=== PATIENT | male | born 1965 | race African-American/Black ===

== ENCOUNTER 2019-11-09 22:53 | Inpatient (IN) | payer MEDICAID, OTHER ==
[~2019-11-09] VITALS: Ht 177.8 cm; Wt 121.6 kg
[2019-11-09] MEDS ORDERED: ASPIRIN 81MG TABLET PO ONE (23:30)
[2019-11-09] MEDS ORDERED: NITROGLYCERIN 0.4MG TABLET SL SL PRN (23:30)
[2019-11-09 23:55] LABS: BASOPHILS % 0.4 % (0.0-2.0); EOSINOPHILS % 3.9 % (0.0-5.0); HEMATOCRIT. 40.3 % (42.0-52.0); HEMOGLOBIN. 12.7 g/dL (14.0-18.0); LYMPHOCYTES % 19.2 % (20.0-50.0); MEAN CORPUSCULAR HEMOGLOBIN 19.4 pg (28.0-32.0); MEAN CORPUSCULAR VOLUME 61.4 fL (80.0-94.0); MEAN PLATELET VOLUME 8.6 fl (7.4-10.4); MONOCYTES % 11.6 % (2.0-8.0); NEUTROPHILS % 64.9 % (40.0-76.0); PLATELET 151 x1000/uL (130-400); RED BLOOD CELL COUNT 6.56 mill/uL (4.7-6.1); RED CELL DISTRIBUTION WIDTH 18.1 % (11.6-14.6)
[2019-11-10] VITALS (8 sets, daily range): BP systolic 105–155; BP diastolic 61–92
[2019-11-10 00:06] LABS: CHLORIDE 103 mEq/L (98-107)
[2019-11-10 00:47] LABS: PLATELET ESTIMATE NORMAL
[2019-11-10 02:07] LABS: CLARITY URINE CLEAR (CLEAR); COLOR URINE YELLOW (YELLOW); KETONES URINE NEGATIVE (NEGATIVE); LEUKOCYTE ESTERASE URINE NEGATIVE (NEGATIVE); NITRITE URINE NEGATIVE (NEGATIVE); OCCULT BLOOD URINE NEGATIVE (NEGATIVE); PROTEIN URINE NEGATIVE (NEGATIVE); SPECIFIC GRAVITY URINE 1.021 (1.005-1.030); UROBILINOGEN URINE 0.2 E.U./dL (0.2-1.0)
[2019-11-10] MEDS ORDERED: METO-539 PO (04:56)
[2019-11-10] MEDS ORDERED: ACETAMINOPHEN 325MG TABLET PO PRN (05:15)
[2019-11-10] MEDS ORDERED: CLONIDINE 0.1MG TABLET PO PRN (05:15)
[2019-11-10] MEDS ORDERED: HYDROCODONE/ACETAMINOPHEN 5/325MG TABLET PO PRN (05:15)
[2019-11-10 08:55] LABS: BASOPHILS % 0.5 % (0.0-2.0); EOSINOPHILS % 4.5 % (0.0-5.0); HEMATOCRIT. 40.5 % (42.0-52.0); HEMOGLOBIN. 12.6 g/dL (14.0-18.0); LYMPHOCYTES % 21.9 % (20.0-50.0); MEAN CORPUSCULAR HEMOGLOBIN 19.2 pg (28.0-32.0); MEAN CORPUSCULAR VOLUME 61.7 fL (80.0-94.0); MEAN PLATELET VOLUME 8.7 fl (7.4-10.4); MONOCYTES % 12.2 % (2.0-8.0); NEUTROPHILS % 60.9 % (40.0-76.0); PLATELET 141 x1000/uL (130-400); RED BLOOD CELL COUNT 6.56 mill/uL (4.7-6.1); RED CELL DISTRIBUTION WIDTH 17.8 % (11.6-14.6)
[2019-11-10 09:02] LABS: CHLORIDE 103 mEq/L (98-107)
[2019-11-10 09:12] LABS: PHOSPHORUS 4.4 mg/dL (2.5-4.9)
[2019-11-10 09:13] LABS: LDL CHOLESTEROL 196 mg/dL (5-100)
[2019-11-10 09:14] LABS: HDL CHOLESTEROL 47 mg/dL (40-59)
[2019-11-10] MEDS: ENOXAPARIN 30MG/0.3ML SYR SUBCUT SCH ×2 (10:57→21:56)
[2019-11-10] MEDS: ASPIRIN 81MG TABLET PO SCH (10:57)
[2019-11-10 13:23] LABS: HEPATITIS B SURFACE ANTIGEN NEGATIVE
[2019-11-10 13:52] LABS: HEPATITIS A AB IGM NEGATIVE (NEGATIVE)
[2019-11-10] MEDS ORDERED: ONDANSETRON HCL 4MG/2ML INJ IV PRN (15:45)
[2019-11-10] MEDS ORDERED: IPRATROPIUM/ALBUTEROL 0.5-3(2.5)MG/3ML NEB HHN PRN (15:45)
[2019-11-10] MEDS: FUROSEMIDE 40MG/4ML VIAL IVP SCH (16:10)
[2019-11-11] VITALS (8 sets, daily range): BP systolic 112–146; BP diastolic 60–87
[2019-11-11 02:07] LABS: *AMPHETAMINES SCREEN URINE NEGATIVE (NEGATIVE); *BARBITURATES SCREEN URINE NEGATIVE (NEGATIVE); *BENZODIAZEPINES SCREEN URINE NEGATIVE (NEGATIVE); *COCAINE SCREEN URINE NEGATIVE (NEGATIVE); METHADONE URINE SCREEN NEGATIVE (NEGATIVE); OPIATES URINE SCREEN NEGATIVE (NEGATIVE)
[2019-11-11 02:08] LABS: CANNABINOID URINE SCREEN NEGATIVE (NEGATIVE); PHENCYCLIDINE URINE SCREEN NEGATIVE (NEGATIVE)
[2019-11-11 07:14] LABS: BASOPHILS % 0.4 % (0.0-2.0); EOSINOPHILS % 3.9 % (0.0-5.0); HEMATOCRIT. 41.6 % (42.0-52.0); HEMOGLOBIN. 12.9 g/dL (14.0-18.0); LYMPHOCYTES % 19.9 % (20.0-50.0); MEAN CORPUSCULAR HEMOGLOBIN 19.2 pg (28.0-32.0); MEAN CORPUSCULAR VOLUME 62.1 fL (80.0-94.0); MONOCYTES % 12.9 % (2.0-8.0); NEUTROPHILS % 62.9 % (40.0-76.0); PLATELET 159 x1000/uL (130-400); RED BLOOD CELL COUNT 6.69 mill/uL (4.7-6.1); RED CELL DISTRIBUTION WIDTH 18.1 % (11.6-14.6)
[2019-11-11 07:23] LABS: CHLORIDE 99 mEq/L (98-107)
[2019-11-11] MEDS: ENOXAPARIN 30MG/0.3ML SYR SUBCUT SCH ×2 (08:31→20:42)
[2019-11-11] MEDS: ASPIRIN 81MG TABLET PO SCH (08:32)
[2019-11-11] MEDS: FUROSEMIDE 40MG/4ML VIAL IVP SCH (08:32)
[2019-11-11] MEDS ORDERED: REGADENOSON 0.4 MG/5 ML IV ONE ×2 (09:15→14:07)
[2019-11-11] MEDS ORDERED: FUROSEMIDE 40MG/4ML VIAL IVP NR (18:00)
[2019-11-11] MEDS ORDERED: LOSARTAN POTASSIUM 50 MG TABLET PO SCH (18:00)
[2019-11-11] MEDS ORDERED: CARVEDILOL 12.5MG TABLET PO SCH (21:00)
[2019-11-17] MEDS ORDERED: COR3 PO (12:48)
[2019-11-17] MEDS ORDERED: LIP40 PO (12:48)
[2019-11-17] MEDS ORDERED: LISI2.5T47 PO (12:48)
[2019-11-17] MEDS ORDERED: ASPI-1158 PO (12:48)
== END 2019-11-12 00:20 | DRG 203 ==
LOC: ER 22:53 → 8WST 11-10 01:37 → EDBEDREQ 11-10 01:47 → EDBEDREQTM 11-10 01:47 → EDBEDREQDT 11-10 01:47 → ENRESERV 11-10 02:29
PROVIDERS: ADMIT Internal Medicine; ATTEND Internal Medicine
DX: M94.0 Chondrocostal junction syndrome [Tietze] (principal); I50.23 Acute on chronic systolic (congestive) heart failure; I20.0 Unstable angina; D64.9 Anemia, unspecified; E44.1 Mild protein-calorie malnutrition; E66.01 Morbid (severe) obesity due to excess calories; E78.5 Hyperlipidemia, unspecified; I11.0 Hypertensive heart disease with heart failure; J44.9 Chronic obstructive pulmonary disease, unspecified; R74.0 Nonspecific elevation of levels of transaminase and lactic acid dehydrogenase [LDH]; Z68.38 Body mass index [BMI] 38.0-38.9, adult; Z79.899 Other long term (current) drug therapy
CPT/HCPCS: 36415; 71045; 80048; 80053; 80061; 80305; 81003; 83735; 83880; 84100; 84443; 84484; 85025; 86705; 86709; 86803; 87340; 93005; 93306; 93970; 99291; J1650; J1940; J2785